=== PATIENT | male | born 1980 | race Caucasian/White ===

== ENCOUNTER 2017-03-15 14:26 | Emergency (ER) | payer SELFPAY ==
[~2017-03-15] VITALS: Ht 182.9 cm; Wt 67.5 kg
[~2017-03-15 14:26] MED LIST: AUGMENTIN875 MG PO; INDOCIN25 MG PO; NAPROSYN500 MG PO; PEN-VEE K,VEET500 MG PO
[2017-03-15 15:00] VITALS: BP 144/105
[2017-03-15] MEDS ORDERED: NORCO 5/3251 TABLET PO (17:51)
[2017-03-15] MEDS ORDERED: KEFLEX500 MG PO (17:51)
== END 2017-03-15 18:00 | disposition home or self-care (01) ==
LOC: EME 14:26
PROC: 0H91XZZ Drainage of Face Skin, External Approach (ICD-10-PCS; principal; 2017-03-15)
DX: M27.2 Inflammatory conditions of jaws (principal); Z72.0 Tobacco use
CPT/HCPCS: 87070; 87075; 87076; 87077; 87186; 87205; 99281; 99284

== ENCOUNTER 2017-03-30 17:35 | Emergency (ER) | payer SELFPAY ==
[~2017-03-30] VITALS: Ht 182.9 cm; Wt 70.5 kg
[~2017-03-30 17:35] MED LIST changes: +KEFLEX500 MG PO; +NORCO 5/3251 TABLET PO
[2017-03-30] MEDS ORDERED: PEN-VEE K,VEET500 MG PO (21:25)
[2017-03-30] MEDS ORDERED: ULTRAM50 MG PO (21:25)
[2017-03-30] MEDS ORDERED: NAPROSYN500 MG PO (21:25)
[2017-03-30 22:10] VITALS: BP 160/92
== END 2017-03-30 22:27 | disposition home or self-care (01) ==
LOC: EME 17:35
PROC: 3E0T3BZ Introduction of Anesthetic Agent into Peripheral Nerves and Plexi, Percutaneous Approach (ICD-10-PCS; principal; 2017-03-30)
DX: K02.9 Dental caries, unspecified (principal); K04.7 Periapical abscess without sinus
CPT/HCPCS: 99281; 99284

== ENCOUNTER 2017-05-14 18:58 | Emergency (ER) | payer OTHER ==
[~2017-05-14] VITALS: Ht 182.9 cm; Wt 66.5 kg
[~2017-05-14 18:58] MED LIST changes: +ULTRAM50 MG PO
[2017-05-14 20:08] VITALS: BP 143/96
== END 2017-05-14 20:11 | disposition home or self-care (01) ==
LOC: EME 18:58
DX: S61.210A Laceration without foreign body of right index finger without damage to nail, initial encounter (principal); W26.8XXA Contact with other sharp object(s), not elsewhere classified, initial encounter; Y99.0 Civilian activity done for income or pay; Z23 Encounter for immunization; F17.200 Nicotine dependence, unspecified, uncomplicated
CPT/HCPCS: 99281; 99284; S0020